=== PATIENT | male | born 1995 | race Hispanic/Latino ===

== ENCOUNTER 2016-12-15 14:23 | Emergency (ER) | payer MEDICAID, OTHER ==
[2016-12-15 14:36] VITALS: BP 155/89; PULSE 109; RESP 18; TEMP 98.1; O2SAT 99
[2016-12-15 15:20] LABS: BASO % 0.4 % (0.0-2.0); EOS # 0.1 K/uL (0.0-0.7); EOS % 0.6 % (0.0-4.0); HEMATOCRIT 45.6 % (35.0-51.0); LYMPH % 18.1 % (20.0-40.0); MEAN CELL VOLUME 82.5 fl (80.0-94.0); MEAN CORPUSCULAR HEMOGLOBIN 28.2 pg (27.0-31.0); MEAN CORPUSCULAR HGB CONC 34.2 g/dL (33.0-37.0); MEAN PLATELET VOLUME 8.3 fl (7.2-11.7); MONO # 0.5 K/uL (0.0-0.8); MONO % 4.4 % (0.0-10.0); NEUT # 8.6 K/uL (1.8-7.0); NEUT % 76.5 % (50.0-75.0); RED CELL DISTRIBUTION WIDTH 14.3 % (11.5-14.5); WHITE BLOOD COUNT 11.3 K/uL (4.8-10.8)
--- NOTE | 2016-12-15 15:41 | ED PDOC ---
HPI: Chest Pain Time Seen by Provider: 12/15/16 14:54 Chief Complaint (Nursing): Chest Pain Chief Complaint (Provider): chest pain History Per: Patient History/Exam Limitations: no limitations Current Symptoms Are (Timing): Still Present Associated Symptoms: denies: Nausea, Dyspnea, Diaphoresis, Syncope Additional Complaint(s): 21yo M in ED for eval of chest pain left sided with associated pain in left arm( now resolved, but residual CP) started 1 hour ago 10pain -described as squeezing. admits to feeling pain to chest after or questionably during anxiety attack (has anxiety attacks often-no medication). admits he does get chest pain with anxiety attacks, but it never lasts long. no diaprhoreisis, neck pain, SOB , abd pain, PERC negative. no cardiac hx of smoking or drug use. - Risk Factors PE Risk Factors: Neg: Extremity Immobilization/Fx, Decreased Mobilty /Activity, Recent Major Surgery, Recent Hospitalization, Active Cancer, Previous PE, CHF, Venous Stasis , Estrogen Usage, , Post-, Recent Major Trauma Past Medical History Reviewed: Historical Data, Nursing Documentation, Vital Signs Vital Signs: Last Vital Signs Temp 98.1 F 12/15/16 14:34 Pulse 109 H 12/15/16 14:34 Resp 18 12/15/16 14:34 BP 155/89 H 12/15/16 14:34 Pulse Ox 99 12/15/16 15:44 - Medical History PMH: Anxiety - Surgical History Surgical History: Tonsillectomy - Family History Family History: States: No Known Family Hx - Allergies Allergies/Adverse Reactions: Allergies Allergy/AdvReac Type Severity Reaction Status Date / Time No Known Allergies Allergy Verified 12/15/16 14:33 VANDANA Risk Score for UA/NSTEMI - VANDANA Risk Score Age > 64: NO 3 or more CAD Risk Factors: NO Known CAD (Stenosis greater than 50%): NO Aspirin use in past 7 days: NO Severe Angina: NO EKG ST changes greater than 0.5mm: NO Positive Cardiac Marker: NO VANDANA Score: 0 Risk %: 5% Curb-65 Severity Score - CURB-65 Severity Score Confusion: No Bun >19mg/dl (>7mmol/L): No Respiratory Rate greater than/equal to 30: No Systolic BP <90 or Diastolic BP less than/equal 60mmHg: No Age >64: No Curb-65 Score: 0 Percentage 30-day mortality: 0.6% Wells Criteria for PE - Wells Criteria for Pulmonary Embolism Clinical Signs and Symptoms of DVT: No P.E is #1 Diagnosis, or Equally Likely: No Heart Rate >100: No Immobilization at least 3 days;Surgery previous 4 weeks: No Previous, objectively diagnosed PE or DVT: No Hemoptysis: No Malignancy w/treatment within 6 months, or palliative: No Total Score: 0 Review of Systems ROS Statement: Except As Marked, All Systems Reviewed And Found Negative Constitutional: Negative for: Fever, Chills, Weakness, Malaise Cardiovascular: Positive for: Chest Pain, Palpitations. Negative for: Orthopnea , Paroxysmal Noc. Dyspnea, Edema, Light Headedness Respiratory: Negative for: Cough, Shortness of Breath, Hemoptysis Gastrointestinal: Negative for: Nausea, Vomiting, Abdominal Pain Genitourinary Male: Negative for: Dysuria Physical Exam - Reviewed Nursing Documentation Reviewed: Yes Vital Signs Reviewed: Yes - Physical Exam Appears: Positive for: Well, Non-toxic, No Acute Distress Skin: Positive for: Normal Color, Warm, DRY Eye Exam: Positive for: EOMI, Normal appearance, PERRL ENT: Positive for: Normal ENT Inspection Cardiovascular/Chest: Positive for: Regular Rate, Rhythm Respiratory: Positive for: CNT, Normal Breath Sounds Gastrointestinal/Abdominal: Positive for: Normal Exam, Bowel Sounds, Soft Back: Positive for: Normal Inspection Neurologic/Psych: Positive for: Alert, Oriented - Laboratory Results Result Diagrams: 12/15/16 15:10 12/15/16 15:10 - ECG O2 Sat by Pulse Oximetry: 99 - Progress ED Course And Treament: Orders Category Date Time Status EKG [ELECTROCARDIOGRAM] Stat Cardiology 12/15/16 14:59 Ordered COMP METABOLIC PANEL Stat Chem 12/15/16 15:10 Received TROPONIN I Stat Chem 12/15/16 15:10 Received EKG-ED [EDNURTX] STAT ED Care 12/15/16 14:59 Active CBC (WITH DIFFERENTIAL) Stat BENJAMIN 12/15/16 15:10 Completed ALPRAZolam [Xanax] Med 12/15/16 15:41 Once 0.5 mg PO ONCE ONE 12/15/16 15:10 WBC 11.3 H RBC 5.53 Hgb 15.6 Hct 45.6 MCV 82.5 MCH 28.2 MCHC 34.2 RDW 14.3 Plt Count 200 MPV 8.3 Neut % (Auto) 76.5 H Lymph % (Auto) 18.1 L Kings % (Auto) 4.4 Eos % (Auto) 0.6 Baso % (Auto) 0.4 Neut # 8.6 H Lymph # 2.0 Kings # 0.5 Eos # 0.1 Baso # 0.0 Medical Decision Making Medical Decision Making: all labs are within range. Pt improved with valium PO. Pt advised to have f.u with loan interviewer -chest pain now resolved. Disposition - Clinical Impression Clinical Impression: Anxiety - Patient ED Disposition Is Patient to be Admitted: No Counseled Patient/Family Regarding: Studies Performed, Diagnosis, Need For Followup, Rx Given - Disposition Disposition: Routine/Home Disposition Time: 16:10 Condition: STABLE Instructions: Anxiety (ED) Forms: [facility] (Vietnamese)
[2016-12-15 15:45] LABS: ALB/GLOB RATIO 1.4 (1.0-2.1); ALKALINE PHOSPHATASE 58 U/L (38-126); ALT/SGPT 23 U/L (21-72); AST/SGOT 23 U/L (17-59); BILIRUBIN,TOTAL 0.5 mg/dl (0.2-1.3); BLOOD UREA NITROGEN 12 mg/dl (9-20); CALCIUM 9.4 mg/dL (8.4-10.2); CARBON DIOXIDE 24 mmol/L (22-30); CHLORIDE 108 mmol/L (98-107); GFR AFRICAN-AMERICAN > 60; GLUCOSE,RANDOM 111 mg/dL (75-110); POTASSIUM 4.1 MMOL/L (3.6-5.0); SODIUM 147 mmol/l (132-148)
--- NOTE | 2016-12-17 10:53 | CARD ---
APPROVED REPORT EKG Measurement Heart [id number] <Conclusion> Sinus tachycardia Otherwise normal ECG
== END 2016-12-15 16:40 | disposition home or self-care (01) ==
LOC: H.ER 14:23
DX: F41.9 Anxiety disorder, unspecified (principal)